=== PATIENT | male | born 1980 | race Caucasian/White ===

== ENCOUNTER → 2017-07-29 | Outpatient (CLI) | payer OTHER | LOC: FLAB 17:40 | PROVIDERS: ATTEND Family Medicine | DX: J98.4 Other disorders of lung (principal) ==

== ENCOUNTER → 2017-08-10 | Outpatient (CLI) | payer OTHER | LOC: FIMAGING 11:17 | PROVIDERS: ATTEND Family Medicine | DX: J98.09 Other diseases of bronchus, not elsewhere classified (principal); M79.89 Other specified soft tissue disorders ==

== ENCOUNTER → 2017-08-16 | Outpatient (CLI) | payer OTHER ==
[~2017-08-16] MED LIST: IOPAMIDOL (ISOVUE-300) 100 ML BTL ONE
== END ==
LOC: CIMAGING 08:20
PROVIDERS: ATTEND Family Medicine
DX: R60.0 Localized edema (principal)
CPT/HCPCS: 74177-PO; Q9967